=== PATIENT | female | born 1980 | race Caucasian/White ===

== ENCOUNTER 2016-11-11 16:06 | Emergency (ER) | payer OTHER ==
[~2016-11-11] VITALS: Ht 175.3 cm; Wt 73.9 kg
--- NOTE | 2016-11-11 16:29 | ED GI/GU/ABDOMINAL COMPLAINT ---
History of Present Illness General Chief Complaint: Abdominal Pain/Flank Pain Stated Complaint: 21 WEEKS PREG ABD PAIN Source: patient Exam Limitations: no limitations Vital Signs & Intake/Output Vital Signs & Intake/Output Vital Signs Date Time Temp Pulse Resp B/P B/P Pulse O2 O2 Flow FiO2 Mean Ox Delivery Rate 11/11 1926 98.5 73 18 101/52 98 Room Air 11/11 1609 96.5 72 18 119/78 100 Room Air Allergies Coded Allergies: Penicillins (RASH, SWELLING IN JOINTS 11/11/16) Reconcile Medications Lidocaine HCl (Lidocaine HCl Viscous) 2 % SOLUTION 15 ML PO 4 TIMES/DAY PRN PAIN Ondansetron HCl (Zofran) 4 MG TABLET 1 TAB PO Q6-8P PRN NAUSEA Vit/Iron Fumarate/FA ( Tablet) 27 MG IRON-800 MCG TABLET 1 TAB PO DAILY (Reported) Promethazine HCl 12.5 MG TABLET 1 TAB PO Q6-8 PRN NAUSEA Triage Note: 36 YEAR OLD FEMALE STATES THAT SHE IS 21 WEEKS AND THAT SHE STARTED WITH A PRESSURE IN HER ABD AT 1300 AND THE PAIN KEEPS GETTING WORSE, STATES THAT THE PAIN IS RADIATING DOWN INTO HER GROIN , DENIES BLEEDING. THIS NURSE CALLED CHILD AND SPOKE WITH DR DEVRIES WHO STATES THAT PT SHOULD NOT BE AT THIS HOSPITAL, PTS OBGYN IS AT [facility], PT DROVER HERSELF TO ER. STTAED THAT ISHE CAN BE SEEN IN ER THAT FETUS IS NOT VIABLE AT 21 WEEKS. PT TO ROOM Triage Nurses Notes Reviewed? yes ? Y Is pt currently ? No Onset: Abrupt Duration: constant Timing: single episode today Severity Numbers: 8 Location: epigastric Radiation: no radiation Activities at Onset: eating HPI: Patient is a approximately 21 weeks female uncomplicated who is PHLEBOTOMY PROGRAM COORDINATOR is Dr. GOMEZ and Dr. RINCON FROM [facility] who presents emergency room stating that today she was in her normal state of health however after eating lunch which was a salad patient immediately began complaining of sharp stabbing severe epigastric and right upper quadrant abdominal pain. Patient is positive for nausea without emesis. Last bowel movement was today no blood no melena noted. Denies any fever chills shortness breath cough chest pain and arm pain jaw pain dysuria hematuria vaginal bleeding vaginal discharge. Patient does state that the salad was from yesterday and it obtained shrimp (CARMEN HINOJOSA) Past History Travel History Traveled to [place] past 21 day No Medical History Any Pertinent Medical History? none Neurological: NONE EENT: NONE Cardiovascular: NONE Respiratory: NONE Gastrointestinal: NONE Hepatic: NONE Renal: NONE Musculoskeletal: NONE Psychiatric: NONE Endocrine: NONE Blood Disorders: NONE Cancer(s): NONE FIXTURE MAKER/Reproductive: NONE Surgical History Surgical History: non-contributory Psychosocial History What is your primary language Ugandan Tobacco Use: Never used ETOH Use: denies use Illicit Drug Use: denies illicit drug use Family History Hx Contributory? No (CARMEN HINOJOSA) Review of Systems Review of Systems Constitutional: Reports: no symptoms. EENTM: Reports: no symptoms. Respiratory: Reports: no symptoms. Cardiovascular: Reports: no symptoms. GI: Reports: see HPI, abdominal pain. Genitourinary: Reports: no symptoms. Musculoskeletal: Reports: no symptoms. Skin: Reports: no symptoms. Neurological/Psychological: Reports: no symptoms. Hematologic/Endocrine: Reports: no symptoms. Immunologic/Allergic: Reports: no symptoms. All Other Systems: Reviewed and Negative (CARMEN HINOJOSA) Physical Exam Physical Exam General Appearance: moderate distress Gastrointestinal: normal bowel sounds, soft Comments: HEENT: Normal EENT exam, Neck: Supple, no lymphadenopathy, normal range of motion without pain or tenderness Back: Nontender, no CVA tenderness. Cardiovascular: Regular rate and rhythms no murmurs rubs or gallops, normal JVP Respiratory: Chest nontender. No respiratory distress.breath sounds clear to auscultation bilaterally Abdomen: Severe epigastric and right upper quadrant point tenderness Extremity: No edema, no calf tenderness to palpation, normal and equal pulses. Neuro: Alert oriented x3, motor sensory normal, Skin: No appreciable rash on exposed skin, skin is warm and dry. Psych: Mood and affect is normal, memory and judgment is normal. Core Measures ACS in differential dx? No Severe Sepsis Present: No Septic Shock Present: No (CARMEN HINOJOSA) Progress Differential Diagnosis: AAA, AMI, appendicitis, biliary colic, bowel obstruction , cholecystitis, gastritis, hepatitis, hernia, ischemic bowel, kidney stone, pancreatitis, PID/cervicitis, peptic ulcer, PUD/GERD, perforated viscous, SBO, UTI/pyelo Plan of Care: Orders Procedure Date/time Status LACTIC ACID 11/11 1927 Active DIRECT BILIRUBIN 11/11 1641 Complete PARTIAL THROMBOPLASTIN TIME 11/11 1630 Complete PROTHROMBIN TIME 11/11 1630 Complete URINALYSIS 11/11 162 Complete LIPASE 11/11 162 Complete LACTIC ACID 11/11 162 Complete COMPREHENSIVE METABOLIC PANEL 11/11 162 Complete CBC WITHOUT DIFFERENTIAL 11/11 1626 Complete AMYLASE 11/11 162 Complete Laboratory Tests 11/11/16 1745: Urine Color YEL, Urine Clarity CLEAR, Urine pH 7.5, Ur Specific [place] 1.010, Urine Protein NEG, Urine Ketones NEG, Urine Nitrite NEG, Urine Bilirubin NEG, Urine Urobilinogen 0.2, Ur Leukocyte Esterase NEG, Ur Microscopic EXAM NOT REQUIRED, Urine Hemoglobin NEG, Urine Glucose NEG 11/11/16 1644: Anion Gap 11, Estimated GFR > 60, BUN/Creatinine Ratio 16.7, Glucose 90, Lactic Acid 1.5, Calcium 10.0, Total Bilirubin 0.3, Direct Bilirubin 0.1, AST 20, ALT 31, Alkaline Phosphatase 118, Total Protein 6.7, Albumin 3.9, Globulin 2.8, Albumin/Globulin Ratio 1.4, Amylase 56, Lipase 66, CBC w Diff NO MAN DIFF REQ, RBC 3.66 L, MCV 95.4, MCH 32.6 H, RDW 12.6, MPV 8.4, Gran % 65.6, Lymphocytes % 27.3, Monocytes % 6.0, Eosinophils % 0.8, Basophils % 0.3, Absolute Granulocytes 5.0, Absolute Lymphocytes 2.1, Absolute Monocytes 0.5, Absolute Eosinophils 0.1, Absolute Basophils 0, PUBS MCHC 34.2 11/11/16 1641: PT 11.8, INR 1.13, APTT 26 11/11/16 1630: Direct Bilirubin Cancelled Discussed patient with her PHLEBOTOMY PROGRAM COORDINATOR Dr. RINCON at [phone] It is noted to me while patient was in ultrasound she had 1 episode of WORSENING NAUSEA AFTER LYING SUPINE, Phenergan was administered 11/11/2016 5:49:08 PM patient was reevaluated and still pain persisted nausea is has improved in which GI cocktail with the administered. BLOOD work was reviewed Ultrasound pending Dr. NÚÑEZ is aware 11/11/2016 6:34:08 PM patient currently is resting comfortably denies any pain and nausea GI cocktail was administered and patient had complete resolution of symptoms Discussed patient's blood work and current clinical status and ultrasound findings with the PHLEBOTOMY PROGRAM COORDINATOR on-call who agrees with disposition plan and will let Dr. RINCON KNOW about patient's discharge from the emergency room. Patient was strongly advised and will be wheeled to the child percent her for monitoring. Ultrasound was resulted showing no acute process. Due to history of present illness and exam findings patient has suspicion of gastritis. No suspicion of right lower quadrant pain or appendicitis. Upon discharge patient was able tolerate by mouth discussed disposition and plan with DR. NÚÑEZ who agrees upon discharge patient looks well no apparent distress and will comply with discharge INSTRUCTIONS and had no questions (SIN CARRILLO,CARMEN) Diagnostic Imaging: Viewed by Me: Ultrasound. Radiology Impression: no acute abnormality Initial ED EKG: none Comments: PATIENT: DEBBY DALAL PRESENT AGE: 36 PATIENT ACCOUNT NO: [id number] : 81 LOCATION: ER ORDERING PHYSICIAN: CARMEN CARRILLO SERVICE DATE: 11/11/16 EXAM TYPE: US - US- VIABILITY EXAMINATION: US , VIABILITY CLINICAL INFORMATION: 21 weeks female with right upper quadrant abdominal pain. LMP 06/19/2016. COMPARISON: None. TECHNIQUE: Real-time sonographic imaging of the gravid uterus for the purposes of assessing for viability. No anatomical scans were performed. FINDINGS: Single intrauterine with an estimated gestational age of 21 weeks and 0 days by ultrasound and an estimated date of delivery of 03/24/2017. motion is identified. A four-chamber heart is present. The fetus has a heart rate of 147 bpm. The placenta is posterior in location. IMPRESSION: Single live intrauterine with an estimated gestational age of 21 weeks and 0 days by ultrasound and an estimated date of delivery of 03/24/2017. The placenta is posterior in location. The fetus has a heart rate of 147 bpm. movements are identified. DICTATED BY: SINAN SCHMIDT MD DATE/TIME DICTATED:11/11/161818 DISEASE EDUCATION SPECIALIST:BIJU DATE/TIME TRANSCRIBED:11/11/161818 PATIENT: DEBBY DALAL PRESENT AGE: 36 PATIENT ACCOUNT NO: [id number] : 81 LOCATION: ER ORDERING PHYSICIAN: CARMEN CARRILLO SERVICE DATE: 11/11/16 EXAM TYPE: US - US-LIMITED ABDOMEN EXAMINATION: US ABDOMEN LIMITED CLINICAL INFORMATION: female with right upper quadrant abdominal pain. COMPARISON: CT abdomen and pelvis 01/12/2013. CT abdomen and pelvis 10/21/2009. TECHNIQUE: Real-time imaging of the right upper quadrant abdominal viscera. FINDINGS: PANCREAS: Slightly increased echogenicity of the pancreas, which is entirely nonspecific. LIVER: The liver is normal in size, contour and echogenicity. Incidental note is made of an echogenic lesion within the right hepatic lobe measuring 1.6 x 1.5 x 1.5 cm. This lesion is incompletely characterized on this examination but may reflect a small hepatic hemangioma. No intrahepatic biliary ductal dilatation is identified. GALLBLADDER: Unremarkable. The gallbladder is physiologically distended without evidence of stones, sludge, polyps, wall thickening or pericholecystic fluid. COMMON BILE DUCT: Normal in caliber measuring 0.3 cm in diameter. RIGHT KIDNEY: There is mild fullness of the right renal pelvis. The right kidney is otherwise normal in size, shape and contour and measures 11.6 cm in length. There is no appreciable nephrolithiasis of the right kidney. FREE FLUID: None. IMPRESSION: 1. No cholelithiasis or secondary signs of acute cholecystitis. 2. Mildly increased echogenicity of the pancreas. This finding is entirely nonspecific. Nevertheless, consider correlation with pancreatic enzymes to exclude underlying pancreatitis. 3. Incidental note is made of a 1.6 x 1.5 x 1.5 cm echogenic lesion within the right hepatic lobe. This lesion is incompletely characterized on this exam but may reflect a hepatic hemangioma. A 1.7 cm hypoattenuating nodule within the visualized within the left hepatic lobe on multiple prior CTs of the abdomen dating back to 2009. 4. Mild prominence of the right renal pelvis which may be expected given the presence of a gravid uterus. Recommend follow-up renal ultrasound to assess for interval changes. No appreciable nephrolithiasis of the right kidney. DICTATED BY: SINAN SCHMIDT MD DATE/TIME DICTATED:11/11/161823 DISEASE EDUCATION SPECIALIST:BIJU DATE/TIME TRANSCRIBED:11/11/161823 CONFIDENTIAL, DO NOT COPY WITHOUT APPROPRIATE AUTHORIZATION. (CARMEN HINOJOSA) Departure Departure Disposition: HOME OR SELF CARE Condition: Stable Clinical Impression Primary Impression: Abdominal pain during Secondary Impressions: Gastritis Referrals: PIPPA SADLER,HI LOPEZ MD,PAPITO (PCP/Family) Additional Instructions: As discussed begin a 24-hour clear liquid and bland diet to rest your bowels Begin drinking plenty of fluids especially water for hydration. Begin the prescription of Zofran for nausea and promethazine for breakthrough nausea relief. Again [id number] Maalox and mixed with the prescription of viscous lidocaine as directed for your abdominal complaints. If no better in 2 days follow-up with personal insurance advisor Dr. DAS and follow-up with your established PHLEBOTOMY PROGRAM COORDINATOR tomorrow for further evaluation treatment. Please provide your PHLEBOTOMY PROGRAM COORDINATOR with the blood work copies in the ultrasound copies provided to the emergency room. If symptoms worsen or if you develop any new concerning symptom return to emergency room immediately ONCE YOU ARE discharged in the emergency room please GO TO THE [facility] for monitoring Departure Forms: Customer Survey General Discharge Information Prescriptions: Current Visit Scripts Ondansetron HCl (Zofran) 1 TAB PO Q6-8P PRN NAUSEA #10 TAB Promethazine HCl 1 TAB PO Q6-8 PRN NAUSEA #8 TAB Lidocaine HCl (Lidocaine HCl Viscous) 15 ML PO 4 TIMES/DAY PRN PAIN #100 ML (CARMEN HINOJOSA) PA/DENTAL SERVICE TECHNICIAN Co-Sign Statement Statement: ED Attending supervision documentation- [x] I saw and evaluated the patient. I have also reviewed all the pertinent lab results and diagnostic results. I agree with the findings and the plan of care as documented in the PA's/DENTAL SERVICE TECHNICIAN's documentation. [] I have reviewed the ED Record and agree with the PA's/DENTAL SERVICE TECHNICIAN's documentation. [] Additions or exceptions (if any) to the PAs/DENTAL SERVICE TECHNICIAN's note and plan are summarized below: [] 11/11/16 4:52 pm 36-year-old female presents to the emergency department with epigastric abdominal pain and nausea. The patient is a 1 para 0 who is currently 21 weeks . She denies lower abdominal pain or vaginal bleeding. She says she has a history of kidney stones but no gallstones. Abdomen is soft. The uterus is palpable above the umbilicus. It is nontender. Bedside ultrasound by me does not show gallstones. There is good movement. An official ultrasound of the right upper quadrant and a viabily study have been ordered (DIANNA NÚÑEZ DO)
[2016-11-11 16:52] LABS: ABSOLUTE BASOPHIL COUNT 0 /CUMM (0.0-0.2); ABSOLUTE EOSINOPHIL COUNT 0.1 /CUMM (0.0-0.7); ABSOLUTE LYMPH COUNT 2.1 /CUMM (1.2-3.4); ABSOLUTE MONOCYTE COUNT 0.5 /CUMM (0.10-0.60); BASOPHIL % 0.3 % (0.0-2.0); EOSINOPHIL % 0.8 % (0-5); GRANULOCYTE % 65.6 % (42.2-75.2); HEMATOCRIT 34.9 % (37-47); MEAN CORPUSCULAR HGB 32.6 PG (27.0-31.0); MEAN CORPUSCULAR HGB CONC 34.2 G/DL (33.0-37.0); MEAN CORPUSCULAR VOLUME 95.4 FL (81.0-99.0); MEAN PLATELET VOLUME 8.4 FL (7.4-10.4); PLATELET COUNT 193 /CUMM (130-400); RBC DISTRIBUTION WIDTH 12.6 % (11.5-14.5); RED BLOOD CELL CT 3.66 /CUMM (4.20-5.40); WHITE BLOOD CELL COUNT 7.6 /CUMM (4.8-10.8)
[2016-11-11 17:03] LABS: PT 11.8 SEC (9.4-12.5); PTT 26 SEC (25-37)
[2016-11-11] MEDS ORDERED: PRENATAL TABLE1 EAC3 PO (17:36)
--- NOTE | 2016-11-11 18:28 | ULTRASOUND REPORT ---
EXAMINATION: US , VIABILITY CLINICAL INFORMATION: 21 weeks female with right upper quadrant abdominal pain. LMP 06/19/2016. COMPARISON: None. TECHNIQUE: Real-time sonographic imaging of the gravid uterus for the purposes of assessing for viability. No anatomical scans were performed. FINDINGS: Single intrauterine with an estimated gestational age of 21 weeks and 0 days by ultrasound and an estimated date of delivery of 03/24/2017. motion is identified. A four-chamber heart is present. The fetus has a heart rate of 147 bpm. The placenta is posterior in location. IMPRESSION: Single live intrauterine with an estimated gestational age of 21 weeks and 0 days by ultrasound and an estimated date of delivery of 03/24/2017. The placenta is posterior in location. The fetus has a heart rate of 147 bpm. movements are identified.
--- NOTE | 2016-11-11 18:43 | ULTRASOUND REPORT ---
EXAMINATION: US ABDOMEN LIMITED CLINICAL INFORMATION: female with right upper quadrant abdominal pain. COMPARISON: CT abdomen and pelvis 01/12/2013. CT abdomen and pelvis 10/21/2009. TECHNIQUE: Real-time imaging of the right upper quadrant abdominal viscera. FINDINGS: PANCREAS: Slightly increased echogenicity of the pancreas, which is entirely nonspecific. LIVER: The liver is normal in size, contour and echogenicity. Incidental note is made of an echogenic lesion within the right hepatic lobe measuring 1.6 x 1.5 x 1.5 cm. This lesion is incompletely characterized on this examination but may reflect a small hepatic hemangioma. No intrahepatic biliary ductal dilatation is identified. GALLBLADDER: Unremarkable. The gallbladder is physiologically distended without evidence of stones, sludge, polyps, wall thickening or pericholecystic fluid. COMMON BILE DUCT: Normal in caliber measuring 0.3 cm in diameter. RIGHT KIDNEY: There is mild fullness of the right renal pelvis. The right kidney is otherwise normal in size, shape and contour and measures 11.6 cm in length. There is no appreciable nephrolithiasis of the right kidney. FREE FLUID: None. IMPRESSION: 1. No cholelithiasis or secondary signs of acute cholecystitis. 2. Mildly increased echogenicity of the pancreas. This finding is entirely nonspecific. Nevertheless, consider correlation with pancreatic enzymes to exclude underlying pancreatitis. 3. Incidental note is made of a 1.6 x 1.5 x 1.5 cm echogenic lesion within the right hepatic lobe. This lesion is incompletely characterized on this exam but may reflect a hepatic hemangioma. A 1.7 cm hypoattenuating nodule within the visualized within the left hepatic lobe on multiple prior CTs of the abdomen dating back to 2009. 4. Mild prominence of the right renal pelvis which may be expected given the presence of a gravid uterus. Recommend follow-up renal ultrasound to assess for interval changes. No appreciable nephrolithiasis of the right kidney.
[2016-11-11] MEDS ORDERED: ZOFRAN4 M2 PO (19:11)
[2016-11-11] MEDS ORDERED: LIDOCAINE HCL V15 ML PO (19:11)
[2016-11-11] MEDS ORDERED: PROMETHAZINE12.5 M2 PO (19:11)
[2016-11-11 19:26] VITALS: BP 101/52
== END 2016-11-11 19:37 ==
LOC: ERH 16:06
PROVIDERS: Physician Assistant
DX: O99.612 Diseases of the digestive system complicating pregnancy, second trimester (principal); K29.70 Gastritis, unspecified, without bleeding; Z3A.21 21 weeks gestation of pregnancy
CPT/HCPCS: 81003; 96365; 96375; G0463; J0131; J2405; J2550